=== PATIENT | female | born 1945 | race Caucasian/White ===

== ENCOUNTER 2019-02-07 11:17 | Outpatient (CLI) | payer MEDICARE, BC ==
--- NOTE | 2019-02-07 11:48 | MMO ---
Bilateral MAMMO Bilat Screen [facility]. CLINICAL HISTORY: Patient is 73 years old and is seen for screening. The patient has no family history of breast cancer. The patient has no personal history of cancer. VIEWS: The views performed were: bilateral craniocaudal with tomosynthesis; bilateral mediolateral oblique with tomosynthesis; and left exaggerated craniocaudal. FILMS COMPARED: The present examination has been compared to prior imaging studies performed at [facility] on 03/08/2013, 05/08/2014, 08/01/2015 and 10/18/2016. MAMMOGRAM FINDINGS: There are scattered fibroglandular densities. There are stable benign appearing calcifications seen in both breasts. There are no suspicious masses, suspicious calcifications, or new areas of architectural distortion. IMPRESSION: THERE IS NO MAMMOGRAPHIC EVIDENCE OF MALIGNANCY. A ROUTINE FOLLOW-UP MAMMOGRAM IN 1 YEAR IS RECOMMENDED. THE RESULTS OF THIS EXAM WERE SENT TO THE PATIENT. ACR BI-RADS Category 2 - Benign finding MAMMOGRAPHY NOTE: 1. A negative mammogram report should not delay a biopsy if a dominant of clinically suspicious mass is present. 2. Approximately 10% to 15% of breast cancers are not detected by mammography. 3. Adenosis and dense breasts may obscure an underlying neoplasm. Reported by: AVELINO WHITE MD Electonically Signed: [id number]
== END 2019-02-07 11:18 | disposition home or self-care (01) ==
LOC: BICMAMMO 11:17
PROVIDERS: ATTEND Internal Medicine
DX: Z12.31 Encounter for screening mammogram for malignant neoplasm of breast (principal)
CPT/HCPCS: 77063; 77067

== ENCOUNTER 2019-10-15 08:18 | Outpatient (CLI) | payer MEDICARE, BC ==
--- NOTE | 2019-10-15 08:58 | ULT ---
US Abdominal Aorta HISTORY: Screening for abdominal aortic aneurysm COMPARISON: None. FINDINGS: The maximum AP dimension of the abdominal aorta measures 1.8 cm. IMPRESSION: No evidence of abdominal aortic aneurysm.
--- NOTE | 2019-10-15 09:15 | BD ---
BONE DENSITOMETRY: INDICATION: Postmenopausal screening. FINDINGS: Lumbar Spine: BMD (g/cm2) L1 0.886 T-Score: -0.9 L2 1.091 T-Score: -0.6 L3 1.174 T-Score: 0.8 L4 1.286 T-Score: 2.0 L1-L4 1.120 T-Score: 0.7 Femoral Neck: 0.858 T-Score: 0.1 Total Femur: 1.082 T-Score: 1.1 Impression: Bone mineral density of the lumbar spine and femoral neck are both within normal range. POS: C
--- NOTE | 2019-10-15 11:38 | MRI ---
MRI OF LEFT SHOULDER PERFORMED IWTHOUT CONTRAST ENHANCEMENT: HISTORY: Left shoulder pain for 6 months. This has gotten worse in the past 3 weeks. FINDINGS: There is moderate arthrosis of the AC joint. The infraspinatus tendon is intact. There is severe tendinosis of the distal. Approximately 2 cm of the supraspinatus tendon has internal signal change compatible with tendinosis and probably mucoid d egeneration is thickened. Just immediately proximal to this is an intermediate area of signal change measuring 5-6 mm. This is not true fluid density and involves the entirety of the tendon with the e xception of a thin portion of the articular-sided fibers. This is most compatible with a chronic tea r with granulation tissue. The subscapularis tendon also shows tendinosis changes of the superior fibers. The biceps tendon garcia s lie in normal position within the bicipital groove. There are tendinosis changes of the intraartic ular portion of the biceps tendon. I do not see any definite signs of any SLAP-type fracture. The inferior glenohumeral ligamentous and labral complex is intact. IMPRESSION: 1. Severe tendinosis of the distal 2 cm of the supraspinatus tendon. Immediately proximal to this is a high-grade area of focal chronic-appearing tear with granulation tissue as discussed above. The re appears to be a very thin layer of articular-sided fibers that are probably still intact. 2. Moderate tendinosis of the intraarticular portion of the biceps tendon and some tendinosis change s of the superior fibers of the subscapularis tendon. POS: TPC
== END 2019-10-15 08:19 | disposition home or self-care (01) ==
LOC: BICULT 08:18
PROVIDERS: ATTEND Internal Medicine
DX: Z13.820 Encounter for screening for osteoporosis (principal); Z13.6 Encounter for screening for cardiovascular disorders; Z78.0 Asymptomatic menopausal state; M75.22 Bicipital tendinitis, left shoulder
CPT/HCPCS: 76775; 77080

== ENCOUNTER 2019-10-15 10:34 | Outpatient (CLI) | payer MEDICARE, BC | END 2019-10-15 10:35 | disposition home or self-care (01) | LOC: BICMRI 10:34 | PROVIDERS: ATTEND Orthopaedic Surgery | DX: M25.512 Pain in left shoulder (principal); M75.92 Shoulder lesion, unspecified, left shoulder ==

== ENCOUNTER 2019-12-05 06:25 | Outpatient (CLI) | payer MEDICARE, BC, OTHER ==
[2019-12-05 14:48] LABS: #Eosinphils 0.3 thou/uL (0.0-0.7); #Lymphocytes 2.4 thou/uL (1.20-3.40); #Monocytes 0.7 thou/uL (0.11-0.59); #Neutrophils 6.1 thou/uL (1.40-6.50); %Basophils 0.5 % (0.0-1.0); %Eosinophils 3.5 % (0.0-10.0); %Lymphocytes 25.3 % (21.0-51.0); %Monocytes 6.9 % (0.0-10.0); %Neutrophils 63.9 % (42.0-75.0); Hemoglobin 13.3 g/dL (12.0-16.0); Mean Corpuscular Hemoglobin 29.6 pg (27.0-31.0); Mean Corpuscular Volume 89.8 fL (78.0-98.0); Mean Platelet Volume 8.8 fL (7.4-10.4); Platelet Count 231 thou/uL (130-400); RBC Distribution Width 11.6 % (11.5-14.5); Red Blood Cell (RBC) Count 4.49 mill/uL (4.20-5.40); White Blood Cell (WBC) Count 9.6 thou/uL (4.8-10.8)
[2019-12-05 15:04] LABS: Anion Gap 16 mmol/L (10-20); BUN (Urea Nitrogen) 20 mg/dL (9.8-20.1); Calc. Creatinine Clearance 0 mL/min (70-130); Calcium 9.4 mg/dL (7.8-10.44); Carbon Dioxide 21 mmol/L (23-31); Chloride 106 mmol/L (98-107); Estimated GFR-MDRD 66; Glucose 122 mg/dL (83-110); Potassium 3.9 mmol/L (3.5-5.1); Sodium 139 mmol/L (136-145)
--- NOTE | 2019-12-05 21:40 | EKG ---
Test Reason : Blood Pressure : / mmHG Vent. Rate : 068 BPM Atrial Rate : 068 BPM P-R Int : 140 ms QRS Dur : 086 ms QT Int : 412 ms P-R-T Axes : 054 007 043 degrees QTc Int : 438 ms Normal sinus rhythm Normal ECG No previous ECGs available Confirmed by ALLISON GORDILLO, DR. Morales ([id number]) on 12/05/2019 9:40:31 PM Referred By: IERO Confirmed By:DR. Carmen COOPER MD
[2019-12-06 11:51] LABS: SARS-CoV-2 MS2 Positive; SARS-CoV-2 N Gene Negative; SARS-CoV-2 S Gene Negative; SARS-CoV-2 orf1ab Negative
== END 2019-12-05 06:26 | disposition home or self-care (01) ==
LOC: LABBT 06:25
PROVIDERS: ATTEND Orthopaedic Surgery
DX: Z01.818 Encounter for other preprocedural examination (principal); Z11.59 Encounter for screening for other viral diseases; M75.102 Unspecified rotator cuff tear or rupture of left shoulder, not specified as traumatic
CPT/HCPCS: 80048; 85025; 93005; U0003; 87635; 93010

== ENCOUNTER 2019-12-07 06:27 | Day surgery (SDC) | payer MEDICARE, BC ==
[2019-12-05 14:17] VITALS: BMI 31.4
[2019-12-07] MEDS ORDERED: Clindamycin/D5W 600 mg/50 ml Premix Bag ONE (07:41)
[2019-12-07] MEDS ORDERED: Midazolam HCl 2 mg/2 ml Vial ONE (07:59)
[2019-12-07] MEDS ORDERED: Fentanyl 100 MCG/2 ML VIAL ONE (07:59)
[2019-12-07] MEDS ORDERED: traMADol HCl 50 MG TAB PO PRN ×2 (08:26)
[2019-12-07] MEDS ORDERED: HYDROcodone/Acetaminophen 10/325 mg Tablet PO PRN ×2 (08:26)
[2019-12-07] MEDS ORDERED: Ondansetron PF 4 MG/2 ML Vial IVP PRN (08:26)
[2019-12-07] MEDS ORDERED: Promethazine HCl 25 MG/ML VIAL IM PRN (08:26)
[2019-12-07] MEDS ORDERED: Zolpidem Tartrate 5 MG TAB PO PRN (08:26)
[2019-12-07] MEDS ORDERED: Ropivacaine 0.2% 550 ML 550 ML NERVE BLCK SCH (08:26)
[2019-12-07] MEDS ORDERED: Acetaminophen 325 MG TAB PO PRN (08:26)
[2019-12-07] MEDS ORDERED: Fentanyl 100 MCG/2 ML VIAL SLOW IVP PRN (08:27)
[2019-12-07] MEDS ORDERED: PROPOFOL 20 ML ONE (08:38)
[2019-12-07] MEDS ORDERED: Lidocaine 1% PF 5 ML VIAL ONE ×2 (08:38→11:44)
[2019-12-07] MEDS ORDERED: Bupivacaine/Epinephrine 0.25% 30 ML VIAL ONE (09:07)
[2019-12-07] MEDS ORDERED: Glycopyrrolate 0.2 MG/ML 5 ML SYRINGE ONE ×2 (11:29→11:44)
[2019-12-07] MEDS ORDERED: Ropivacaine 0.5% HCl/PF (150 MG/30 ML VIAL) ONE (11:44)
[2019-12-07] MEDS ORDERED: Ropivacaine 0.2% HCl/PF (40 MG/20 ML VIAL) ONE (11:44)
[2019-12-07] MEDS ORDERED: PROPOFOL 200 MG/20 ML VIAL ONE (11:44)
[2019-12-07] MEDS ORDERED: Ondansetron PF 4 MG/2 ML Vial ONE (11:44)
[2019-12-07] MEDS ORDERED: Rocuronium Bromide 10 MG/ML (10ML VIAL) ONE (11:44)
--- NOTE | 2019-12-07 18:37 | OP ---
DATE OF PROCEDURE: 12/07/2019 PREOPERATIVE DIAGNOSES: Left shoulder impingement rotator cuff tear, degenerative SLAP tear with biceps tendon tearing and instability. POSTOPERATIVE DIAGNOSES: Left shoulder impingement rotator cuff tear, degenerative SLAP tear with biceps tendon tearing and instability. PROCEDURES PERFORMED: 1. Left shoulder closed manipulation. 2. Left shoulder arthroscopy with arthroscopic rotator cuff repair. 3. Open biceps tenodesis. CASKET INSPECTOR: Pillo Deutsch PA-C ESTIMATED BLOOD LOSS: 30 mL. COMPLICATIONS: None. ANESTHESIA: She had a general anesthetic. She also had a preoperative block. IMPLANTS: We used 2 double-loaded titanium rotator cuff anchors, and we used a 7 x 23 BioComposite Bio-Tenodesis screws. DISPOSITION: She went to recovery room in stable condition. INDICATIONS: This 74-year-old female comes in after greater than 6 months of problems and has failed injection of steroid as well as PRP. She wished to have surgery. DESCRIPTION OF PROCEDURE: After all appropriate consent forms were explained and signed, she was taken to the operative room and at this time, was given general anesthetic. Once the level of anesthesia was appropriate, she was placed in a right lateral decubitus position with all bony prominences were well padded. Axillary roll was placed into the right axilla and a gonzales bag was inflated to hold in this position. The arm was then taken through full range of motion, did lax in forward flexion and gentle manipulation was able to obtain that easily. We then hung the arm with 11 pounds in standard arthroscopic fashion. The left shoulder and upper extremity were then prepped and draped in standard surgical fashion. Bony anatomical landmarks were then drawn out, and the subacromial space was infiltrated with Marcaine with epinephrine. Posterior portal was established. Scope was placed into the shoulder joint. Anterior working portal was then made using a needle localization technique. Diagnostic arthroscopy commenced. The articular surface of the humeral head and glenoid were in good condition. No loose bodies were noted in the axillary pouch. There was a tremendous amount of irritation and synovitis along the superior capsule as well as the capsule superior to the superior labrum. The biceps tendon was found to be flattened, also had some intratendinous tearing, and the patient was found to have a degenerative SLAP tear as well. At this time, debridement was performed of the synovial tissue followed by coagulating this. The tendon tear and labral tear were also debrided. At this time, a needle was placed through the tendon to place a suture followed by using the service to cut the biceps off the labral insertion. Once this was done, we also did debride the rotator cuff tear from the undersurface. The subscapularis was intact, and at this time, we then repositioned the camera into the subacromial space. Lateral working portal was made. A PassPort cannula was placed. Bony decompression was not performed. SERFAS energy and the shaver were used to remove copious amount of soft tissue and irritated bursa off the underlying rotator cuff and once this was done, we then freshened up our rotator cuff tear edges as well as used the shaver to remove any soft tissue and off the bone and do a gentle decortication of the bone prior to reimplanting the tendon. At this time, we then turned our attention to fixing the rotator cuff. Two double-loaded titanium anchors were placed laterally down the arm, and the Scorpion device was used to place all 4 set of sutures through the tendon; the first anterior three in a simple suture configuration, last one in a mattress suture configuration. These were then tied from back to front. This gave us a nice repair of the rotator cuff tendon. The scope was removed. Shoulder was drained. A 15 blade was used to incise the skin for a biceps tenodesis. Bovie was used to coagulate any brisk venous bleeding. Deltoid fascia was then incised sharply, and finger dissection was used to open the deltoid fibers and get down to the underlying transverse humeral ligament. Once this was done, the biceps tendon was pulled out to the wound. It was sutured. The intra-articular portion was removed, and at this time, we placed our guidewire followed by reaming with a 7-mm reamer to a depth of 25 mm. We then placed our 7 x 23 BioComposite Bio-Tenodesis screw in standard fashion. Sutures were tied over top, so it could not back out, and we then thoroughly irrigated and dried. We allowed our deltoid to close upon itself. A running Vicryl was used to close our fascia 2-0 Vicryl, and sutures were used on this incision as well as portals. Bulky sterile dressing was applied. The patient was then awakened to recovery room in stable condition. All counts were correct at the end of the case, and she did receive preoperative IV antibiotics. Job ID: [id number]
== END 2019-12-07 14:20 | disposition home or self-care (01) ==
LOC: SDC 06:27
PROVIDERS: ATTEND Orthopaedic Surgery
PROC: 0LQ24ZZ Repair Left Shoulder Tendon, Percutaneous Endoscopic Approach (ICD-10-PCS; principal; 2019-12-07)
PROC: 0RHK44Z Insertion of Internal Fixation Device into Left Shoulder Joint, Percutaneous Endoscopic Approach (ICD-10-PCS; 2019-12-07)
PROC: 0RNK4ZZ Release Left Shoulder Joint, Percutaneous Endoscopic Approach (ICD-10-PCS; 2019-12-07)
PROC: 0RBK4ZZ Excision of Left Shoulder Joint, Percutaneous Endoscopic Approach (ICD-10-PCS; 2019-12-07)
PROC: 0RHK04Z Insertion of Internal Fixation Device into Left Shoulder Joint, Open Approach (ICD-10-PCS; 2019-12-07)
PROC: 3E0T3BZ Introduction of Anesthetic Agent into Peripheral Nerves and Plexi, Percutaneous Approach (ICD-10-PCS; 2019-12-07)
DX: M75.112 Incomplete rotator cuff tear or rupture of left shoulder, not specified as traumatic (principal); M25.812 Other specified joint disorders, left shoulder; S46.112A Strain of muscle, fascia and tendon of long head of biceps, left arm, initial encounter; S43.432A Superior glenoid labrum lesion of left shoulder, initial encounter; I10 Essential (primary) hypertension; E78.5 Hyperlipidemia, unspecified; E78.00 Pure hypercholesterolemia, unspecified; K21.9 Gastro-esophageal reflux disease without esophagitis; E03.9 Hypothyroidism, unspecified; M17.0 Bilateral primary osteoarthritis of knee; Z79.818 Long term (current) use of other agents affecting estrogen receptors and estrogen levels; Z79.899 Other long term (current) drug therapy; Z88.0 Allergy status to penicillin; Z88.1 Allergy status to other antibiotic agents; G89.18 Other acute postprocedural pain
CPT/HCPCS: 23430; 29827; 64416; 97139; A4306; C1713; J2001; J2250; J2405; J2704; J2795; J3010; J3490

== ENCOUNTER 2019-12-08 03:54 | Emergency (ER) | payer MEDICARE, BC ==
[2019-12-08] MEDS ORDERED: Morphine 10 MG/ML VIAL ONE (04:18)
== END 2019-12-08 05:15 | disposition home or self-care (01) ==
LOC: ERS 03:54
DX: G89.18 Other acute postprocedural pain (principal); I10 Essential (primary) hypertension; Z79.899 Other long term (current) drug therapy
CPT/HCPCS: 96372; 99283; J2270

== ENCOUNTER 2020-05-02 14:18 | Outpatient (CLI) | payer MEDICARE, BC ==
--- NOTE | 2020-05-02 14:53 | MMO ---
Bilateral MAMMO Bilat Screen [facility]. CLINICAL HISTORY: Patient is 75 years old and is seen for screening. The patient has no family history of breast cancer. The patient has no personal history of cancer. VIEWS: The views performed were: bilateral craniocaudal with tomosynthesis and bilateral mediolateral oblique with tomosynthesis. FILMS COMPARED: The present examination has been compared to prior imaging studies performed at [facility] on 05/08/2014, 08/01/2015, 10/18/2016 and 02/07/2019. This study has been interpreted with the assistance of computer-aided detection. MAMMOGRAM FINDINGS: The breasts are heterogeneously dense, which could obscure a lesion on mammography. There are stable benign appearing calcifications seen in both breasts. There are no suspicious masses, suspicious calcifications, or new areas of architectural distortion. IMPRESSION: THERE IS NO MAMMOGRAPHIC EVIDENCE OF MALIGNANCY. A ROUTINE FOLLOW-UP MAMMOGRAM IN 1 YEAR IS RECOMMENDED. THE RESULTS OF THIS EXAM WERE SENT TO THE PATIENT. ACR BI-RADS Category 2 - Benign finding MAMMOGRAPHY NOTE: 1. A negative mammogram report should not delay a biopsy if a dominant of clinically suspicious mass is present. 2. Approximately 10% to 15% of breast cancers are not detected by mammography. 3. Adenosis and dense breasts may obscure an underlying neoplasm. Reported by: FLORY GALLEGOS MD Electonically Signed: [id number]
--- NOTE | 2020-05-02 15:20 | CT ---
CT BRAIN WITHOUT CONTRAST: 05/02/20 HISTORY: Posttraumatic headache. Patient fell off ladder and hit back of head three weeks ago with possible lo ss of consciousness. COMPARISON: 06/12/15. FINDINGS: No evidence of acute infarct, hemorrhage, midline shift or abnormal extra-axial fluid collections are seen. The ventricular size is appropriate and the basilar cisterns patent. 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 The bony calvarium is intact. The visualized paranasal sinuses and mastoid air cells are well aerated. IMPRESSION: No CT evidence of acute intracranial process. POS: AH
== END 2020-05-02 14:19 | disposition home or self-care (01) ==
LOC: BICMAMMO 14:18
PROVIDERS: ATTEND Internal Medicine
DX: Z12.31 Encounter for screening mammogram for malignant neoplasm of breast (principal); G44.319 Acute post-traumatic headache, not intractable
CPT/HCPCS: 70450; 77063; 77067

== ENCOUNTER 2021-05-07 11:18 | Outpatient (CLI) | payer MEDICARE, BC | END 2021-05-07 11:19 | disposition home or self-care (01) | LOC: BICMAMMO 11:18 | PROVIDERS: ATTEND Family Medicine | DX: Z12.31 Encounter for screening mammogram for malignant neoplasm of breast (principal) | CPT/HCPCS: 77063; 77067 ==

== ENCOUNTER 2021-08-20 11:51 | Outpatient (CLI) | payer MEDICARE, BC | END 2021-08-20 11:52 | disposition home or self-care (01) | LOC: SCSMRI 11:51 | PROVIDERS: ATTEND Internal Medicine | DX: R51.9 Headache, unspecified (principal); S06.0X0A Concussion without loss of consciousness, initial encounter | CPT/HCPCS: 70553 ==

== ENCOUNTER 2023-01-12 09:39 | Outpatient (CLI) | payer MEDICARE, BC | END 2023-01-12 09:40 | disposition home or self-care (01) | LOC: BICMAMMO 09:39 | PROVIDERS: ATTEND Internal Medicine | DX: Z12.31 Encounter for screening mammogram for malignant neoplasm of breast (principal) | CPT/HCPCS: 77063; 77067 ==

== ENCOUNTER 2023-10-10 | Outpatient (CLI) | payer MEDICARE | END 2023-10-10 10:47 | disposition home or self-care (01) | DX: N28.1 Cyst of kidney, acquired (principal) ==

== ENCOUNTER 2024-04-12 08:02 | Outpatient (CLI) | payer MEDICARE | END 2024-04-12 08:03 | disposition home or self-care (01) | LOC: BICCT 08:02 | PROVIDERS: ATTEND Internal Medicine | DX: N28.1 Cyst of kidney, acquired (principal) | CPT/HCPCS: 36415; 74178; 82565 ==

== ENCOUNTER 2024-05-07 09:22 | Outpatient (CLI) | payer MEDICARE ==
[2024-05-07] MEDS ORDERED: Magnevist 469MG/ML 20 ML VIAL ONE (10:37)
== END 2024-05-07 09:23 | disposition home or self-care (01) ==
LOC: MRI 09:22
PROVIDERS: ATTEND Internal Medicine
DX: R51.9 Headache, unspecified (principal); I67.82 Cerebral ischemia
CPT/HCPCS: 70553; 76376

== ENCOUNTER 2025-06-24 13:15 | Outpatient (CLI) | payer MEDICARE, BC | END 2025-06-24 13:16 | disposition home or self-care (01) | LOC: BICMAMMO 13:15 | PROVIDERS: ATTEND Internal Medicine | DX: Z12.31 Encounter for screening mammogram for malignant neoplasm of breast (principal); Z78.0 Asymptomatic menopausal state; N63.20 Unspecified lump in the left breast, unspecified quadrant | CPT/HCPCS: 77063; 77067; 77080 ==